=== PATIENT | female | born 1950 | race Hispanic/Latino ===

== ENCOUNTER 2018-02-01 11:20 | Emergency (ER) | payer MEDICARE, OTHER ==
[2018-02-01] MEDS ORDERED: LIDOCAINE 1% MPF 5 ML VIAL ONE ×3 (12:10→13:16)
[2018-02-01] MEDS ORDERED: TETANUS & DIPHTHERIA TOX,ADULT 0.5 ML VIAL ONE ×2 (12:10→12:55)
[2018-02-01] MEDS ORDERED: BUPIVACAINE 0.5% PF 10 ML VIAL ONE ×3 (12:10→13:03)
--- NOTE | 2018-02-01 12:32 | RAD REPORT ---
EXAM DESCRIPTION: RAD - Tib Fib Right - 02/01/2018 12:11 pm CLINICAL HISTORY: ANIMAL BITE COMPARISON: No comparisons FINDINGS: Soft tissue defect is seen medial upper calf region without fracture or foreign body. Hard larry is present in the lateral and medial malleoli.
[2018-02-01] MEDS ORDERED: AMOX/K CLAV 875 MG TAB ONE (12:55)
[2018-02-01] MEDS ORDERED: HYDROCODONE/APAP 5/325 MG TAB ONE (13:08)
--- NOTE | 2018-02-01 14:04 | EDPHYS ---
Physician Documentation [facility] Name: Danelle Mendez Age: 67 yrs Sex: Female : 1950 Arrival Date: 02/01/2018 Time: 11:23 Bed 17 Private MD: Unknown, Unknown ED Physician Miguel Acevedo HPI: 02/01 14:00 This 67 yrs old Female presents to ER via Ambulatory with complaints of Dog pm1 Bite. 14:00 The patient was bitten on the right celestin, by a dog, walking into her friends house, at pm1 a friend's house. Onset: The symptoms/episode began/occurred just prior to arrival. Animal information: The animal was reported to appear healthy. Animal's vaccinations are up to date. Secondary to the bite the patient reports a laceration, irregular shaped, 9 cm(s). Associated signs and symptoms: Pertinent negatives: erythema at site, fever, numbness distal to wound, suspected foreign body. The patient has not experienced similar symptoms in the past. The patient has not recently seen a physician. Historical: - Allergies: 11:56 No Known Allergies; ph - PMHx: 11:56 Hypertension; ph - Immunization history:: Last tetanus immunization: February 01, 2018. - Social history:: Smoking status: Patient/guardian denies using tobacco. - Ebola Screening: : No symptoms or risks identified at this time. ROS: 14:00 Constitutional: Negative for fever, chills, and weight loss, Eyes: Negative for injury, pm1 pain, redness, and discharge, ENT: Negative for injury, pain, and discharge, Neck: Negative for injury, pain, and swelling, Cardiovascular: Negative for chest pain, palpitations, and edema, Respiratory: Negative for shortness of breath, cough, wheezing, and pleuritic chest pain, Abdomen/GI: Negative for abdominal pain, nausea, vomiting, diarrhea, and constipation, Back: Negative for injury and pain. 14:00 Neuro: Negative for headache, weakness, numbness, tingling, and seizure. 14:00 MS/extremity: Positive for laceration, of the right celestin. 14:00 Skin: Positive for laceration(s), of the right celestin. Exam: 14:00 Constitutional: This is a well developed, well nourished patient who is awake, alert, pm1 and in no acute distress. Head/Face: Normocephalic, atraumatic. Eyes: Pupils equal round and reactive to light, extra-ocular motions intact. Lids and lashes normal. Conjunctiva and sclera are non-icteric and not injected. Cornea within normal limits. Periorbital areas with no swelling, redness, or edema. ENT: Nares patent. No nasal discharge, no septal abnormalities noted. Tympanic membranes are normal and external auditory canals are clear. Oropharynx with no redness, swelling, or masses, exudates, or evidence of obstruction, uvula midline. Mucous membranes moist. Neck: Trachea midline, no thyromegaly or masses palpated, and no cervical lymphadenopathy. Supple, full range of motion without nuchal rigidity, or vertebral point tenderness. No Meningismus. Chest/axilla: Normal chest wall appearance and motion. Nontender with no deformity. No lesions are appreciated. Cardiovascular: Regular rate and rhythm with a normal S1 and S2. No gallops, murmurs, or rubs. No pulse deficits. Respiratory: Lungs have equal breath sounds bilaterally, clear to auscultation and percussion. No rales, rhonchi or wheezes noted. No increased work of breathing, no retractions or nasal flaring. Abdomen/GI: Soft, non-tender, with normal bowel sounds. No distension or tympany. No guarding or rebound. No evidence of tenderness throughout. Back: No spinal tenderness. No costovertebral tenderness. Full range of motion. 14:00 Skin: Appearance: normal except for affected area, injury, laceration(s), the wound is approximately 9 cm(s), with a depth of 1 cm(s), of the right celestin, that can be described as clean, no foreign body, irregular, shriveled up circular shape flap. Vital Signs: 11:55 BP 190 / 103; Pulse 83; Resp 18; Temp 97.8; Pulse Ox 96% on R/A; ph 14:20 BP 130 / 81; Pulse 87; Resp 20 S; Pulse Ox 99% on R/A; jl7 Laceration: 14:00 Wound Repair of 10cm ( 3.9in ) subcutaneous laceration to right celestin. Irregularly pm1 shaped.. Distal neuro/vascular/tendon intact. Anesthesia: Local anesthetic administered with 15 mls of Lido/Marcaine. Wound prep: Extensive cleansing with hibiclenz by me, Wound irrigation by me, Wound explored extensively, Copious irrigation. Skin closed with 8 4-0 Prolene using horizontal mattress sutures and sterile technique. Dressed with Neosporin, 4x4's. Patient tolerated well. MDM: 11:52 Patient medically screened. pm1 14:02 Data reviewed: vital signs. Data interpreted: Pulse oximetry: on room air is 96 %. pm1 Interpretation: normal. Counseling: I had a detailed discussion with the patient and/or guardian regarding: the historical points, exam findings, and any diagnostic results supporting the discharge/admit diagnosis, radiology results, the need for outpatient follow up, to return to the emergency department if symptoms worsen or persist or if there are any questions or concerns that arise at home. 02/01 11:57 Order name: Tib Fib Right XRAY; Complete Time: 12:37 pm1 02/01 11:57 Order name: Prolene, Sutures; Complete Time: 13:30 pm1 02/01 11:57 Order name: Dressing - Wound; Complete Time: 13:30 pm1 02/01 11:57 Order name: Gloves, Sterile; Complete Time: 13:30 pm1 02/01 11:57 Order name: Setup Suture Tray; Complete Time: 13:30 pm1 Administered Medications: 13:15 Drug: Augmentin 875 mg Route: PO; 13:45 Follow up: Response: No adverse reaction jl7 13:15 Drug: Tetanus-Diphtheria Toxoid Adult 0.5 ml {[employer]: [employer]. Exp: jl7 02/17/2019. Lot #: [id number]. } Route: IM; Site: right deltoid; 13:30 Follow up: Response: No adverse reaction jl7 13:30 Drug: Lidocaine (1 %) 5 ml {Note: administered by Jordin Murrieta NP.} Volume: 5 ml; jl7 Route: Infiltration; 14:21 Follow up: Response: No adverse reaction jl7 13:30 Drug: Bupivacaine (0.5 %) 10 ml {Note: administered by Jordin Murrieta NP.} Volume: 10 jl7 ml; Route: Infiltration; 14:21 Follow up: Response: No adverse reaction jl7 Disposition: 02/02 07:10 Co-signature as Attending Physician, Miguel Acevedo MD I agree with the assessment and felipe plan of care. Disposition: 02/01/18 14:03 Discharged to Home. Impression: Bitten by dog, Laceration without foreign body, right lower leg. - Condition is Stable. - Discharge Instructions: Laceration Care, Adult, Animal Bite. - Prescriptions for Augmentin 875- 125 mg Oral Tablet - take 1 tablet by ORAL route every 12 hours for 10 days; 20 tablet. Tylenol- Codeine #3 300-30 mg Oral Tablet - take 2 tablets by ORAL route every 6 hours As needed; 20 tablet. - Medication Reconciliation Form, Thank You Letter, Antibiotic Education, Prescription Opioid Use form. - Follow up: Emergency Department; When: As needed; Reason: Worsening of condition. Follow up: Private Physician; When: 10 - 14 days; Reason: Recheck today's complaints, Continuance of care, Re-evaluation by your physician. - Problem is new. - Symptoms have improved. Signatures: Dispatcher [employer] EDMS Miguel Acevedo MD MD cha Hall, Patricia, RN RN ph Jordin Murrieta, DUKEY RIDER DUKEY RIDER pm1 Reinaldo Werner RN RN jl7 Corrections: (The following items were deleted from the chart) 02/01 14:22 14:03 02/01/2018 14:03 Discharged to Home. Impression: Bitten by dog; Laceration jl7 without foreign body, right lower leg. Condition is Stable. Forms are Medication Reconciliation Form, Thank You Letter, Antibiotic Education, Prescription Opioid Use. Follow up: Emergency Department; When: As needed; Reason: Worsening of condition. Follow up: Private Physician; When: 10 - 14 days; Reason: Recheck today's complaints, Continuance of care, Re-evaluation by your physician. Problem is new. Symptoms have improved. pm1
--- NOTE | 2018-02-01 14:04 | ER ---
Nurse's Notes [facility] Name: Danelle Mendez Age: 67 yrs Sex: Female : 1950 Arrival Date: 02/01/2018 Time: 11:23 Bed 17 Private MD: Unknown, Unknown Diagnosis: Bitten by dog;Laceration without foreign body, right lower leg Presentation: 02/01 11:54 Presenting complaint: Patient states: Bit by a friends dog when entering home. Avulsion ph noted to R calve/leg, friend reports that dog's vaccines are UTD. Transition of care: patient was not received from another setting of care. Onset of symptoms was February 01, 2018. Risk Assessment: Do you want to hurt yourself or someone else? Patient reports no desire to harm self or others. Initial Sepsis Screen: Does the patient meet any 2 criteria? No. Patient's initial sepsis screen is negative. Does the patient have a suspected source of infection? No. Patient's initial sepsis screen is negative. Care prior to arrival: None. 11:54 Method Of Arrival: Ambulatory ph 11:54 Acuity: RONAK 3 ph Historical: - Allergies: 11:56 No Known Allergies; ph - PMHx: 11:56 Hypertension; ph - Immunization history:: Last tetanus immunization: February 01, 2018. - Social history:: Smoking status: Patient/guardian denies using tobacco. - Ebola Screening: : No symptoms or risks identified at this time. Screenin:47 Abuse screen: Denies threats or abuse. Denies injuries from another. Nutritional jl7 screening: No deficits noted. Tuberculosis screening: No symptoms or risk factors identified. Fall Risk None identified. Assessment: 12:03 Reassessment: [place] [employer] called and animale bite has been reported. ss 12:47 General: Appears in no apparent distress. uncomfortable, Behavior is calm, cooperative, jl7 appropriate for age. Pain: Complains of pain in right celestin Pain currently is 8 out of 10 on a pain scale. Neuro: Level of Consciousness is awake, alert, obeys commands, Oriented to person, place, time, situation. Cardiovascular: Patient's skin is warm and dry. Respiratory: Airway is patent Respiratory effort is even, unlabored, Respiratory pattern is regular, symmetrical. Derm: Skin laceration noted to right celestin Skin is pink, warm \T\ dry. Injury Description: Bite sustained to right celestin caused by a dog, is full thickness, from animal, was sustained 30-60 minutes ago. Vital Signs: 11:55 BP 190 / 103; Pulse 83; Resp 18; Temp 97.8; Pulse Ox 96% on R/A; ph 14:20 BP 130 / 81; Pulse 87; Resp 20 S; Pulse Ox 99% on R/A; jl7 ED Course: 11:23 Patient arrived in ED. sb2 11:23 Unknown, Unknown is Private Physician. sb2 11:52 Jordin Murrieta NP is PHCP. pm1 11:52 Miguel Acevedo MD is Attending Physician. pm1 11:55 Triage completed. ph 11:55 Arm band placed on. ph 12:11 X-ray completed. Portable x-ray completed in exam room. Patient tolerated procedure ml well. 12:12 Tib Fib Right XRAY In Process Unspecified. EDMS 12:47 Reinaldo Werner RN is Primary Nurse. jl7 12:47 Patient has correct armband on for positive identification. Bed in low position. Call jl7 light in reach. Side rails up X 1. Pulse ox on. NIBP on. 12:47 No provider procedures requiring assistance completed. Patient did not have IV access jl7 during this emergency room visit. Administered Medications: 13:15 Drug: Augmentin 875 mg Route: PO; jl7 13:45 Follow up: Response: No adverse reaction jl7 13:15 Drug: Tetanus-Diphtheria Toxoid Adult 0.5 ml {[employer]: [employer]. Exp: jl7 02/17/2019. Lot #: [id number]. } Route: IM; Site: right deltoid; 13:30 Follow up: Response: No adverse reaction jl7 13:30 Drug: Lidocaine (1 %) 5 ml {Note: administered by Jordin Murrieta NP.} Volume: 5 ml; jl7 Route: Infiltration; 14:21 Follow up: Response: No adverse reaction jl7 13:30 Drug: Bupivacaine (0.5 %) 10 ml {Note: administered by Jordin Murrieta NP.} Volume: 10 jl7 ml; Route: Infiltration; 14:21 Follow up: Response: No adverse reaction jl7 Outcome: 12:47 Discharged to home ambulatory. jl7 12:47 Condition: stable 12:47 Discharge instructions given to patient, Instructed on discharge instructions, follow up and referral plans. medication usage, Demonstrated understanding of instructions, follow-up care, medications, Prescriptions given X 2. 14:03 Discharge ordered by . pm1 14:22 Patient left the ED. [email or web address] Signatures: Dispatcher [employer] EDKeely Stark Shelby, RN RN ss Veronika Trinidad RN RN Jordin Bradley, LIZZIE VOLUNTEER FIRE FIGHTER pm1 Reinaldo Werner RN RN jl7 Mary Jane Buenrostro sb2 Corrections: (The following items were deleted from the chart) 12:03 12:02 Reassessment: marla
== END 2018-02-01 14:22 | disposition home or self-care (01) ==
LOC: ER 11:20
PROC: 0JQN0ZZ Repair Right Lower Leg Subcutaneous Tissue and Fascia, Open Approach (ICD-10-PCS; principal; 2018-02-01)
DX: S81.811A Laceration without foreign body, right lower leg, initial encounter (principal); W54.0XXA Bitten by dog, initial encounter; Y93.89 Activity, other specified; Y92.89 Other specified places as the place of occurrence of the external cause; Z23 Encounter for immunization; I10 Essential (primary) hypertension
CPT/HCPCS: 90714; 99284